=== PATIENT | female | born 1970 | race African-American/Black ===

== ENCOUNTER 2017-06-03 18:13 | Inpatient (IN) | payer OTHER ==
[~2017-06-03] VITALS: Ht 172.7 cm; Wt 167.4 kg
[2017-06-03 21:21] LABS: BASOPHIL % 0.3 % (0-2); PLATELET COUNT 164 x10^3mcL (130-400)
[2017-06-03 21:23] LABS: RED CELL DISTRIBUTION WIDTH 22.5 % (11.5-14.5)
[2017-06-03 21:42] LABS: CALCIUM 9.8 mg/dL (8.5-10.1); CARBON DIOXIDE 33.2 mmol/L (21-32); CHLORIDE SERUM 101 mmol/L (98-107); GFR1 > 60 mL/min; GLUCOSE SERUM 105 mg/dL (74-106); POTASSIUM SERUM 3.9 mmol/L (3.5-5.1); SODIUM SERUM 139 mmol/L (136-145)
[2017-06-03 21:47] LABS: ALKALINE PHOSPHATASE 84 U/L (46-116); ALT/SGPT 14 U/L (14-59); AST/SGOT 14 U/L (15-37); BILIRUBIN TOTAL 0.2 mg/dL (0.20-1.00); TOTAL PROTEIN, SERUM 8.4 g/dL (6.4-8.2)
[2017-06-03 22:03] LABS: AMPHETAMINE QUAL UR NONE DETECTED (NEG <=1000)
[2017-06-04 01:55] LABS: MAGNESIUM 1.9 mg/dL (1.8-2.4); PHOSPHOROUS 3.8 mg/dL (2.5-4.9)
[2017-06-04 01:58] LABS: CHOLESTEROL/HDL RATIO 2.4
[2017-06-04 02:00] LABS: FREE T4 0.84 ng/dL (0.76-1.46); FREE THYROXINE INDEX 1.9 ug/dL (1.4-4.5); T4(THYROXINE) 6.6 ug/dL (4.7-13.3)
[2017-06-04 03:09] LABS: T3 TOTAL 1.25 ng/mL
[2017-06-04 04:25] LABS: microscopic required? NO
[2017-06-04 04:36] LABS: urine erythrocyte NEGATIVE (NEGATIVE)
[2017-06-04 05:12] LABS: BASOPHIL % 0.3 % (0-2); PLATELET COUNT 200 x10^3mcL (130-400)
[2017-06-04 05:13] LABS: RED CELL DISTRIBUTION WIDTH 22.7 % (11.5-14.5)
[2017-06-04 05:23] LABS: CALCIUM 9.6 mg/dL (8.5-10.1); CARBON DIOXIDE 34.4 mmol/L (21-32); CREATININE SERUM 1.1 mg/dL (0.6-1.0); POTASSIUM SERUM 4.1 mmol/L (3.5-5.1)
[2017-06-04 11:01] VITALS: BP 158/85
[2017-06-04 12:30] VITALS: BP 149/89
[2017-06-04 17:05] VITALS: BP 114/64
[2017-06-04] MEDS ORDERED: ZYPREXA15 M1 PO (18:40)
[2017-06-04] MEDS ORDERED: NOR10 PO (18:41)
[2017-06-04] MEDS ORDERED: ZESTRIL20 MG PO (18:41)
[2017-06-04] MEDS ORDERED: DEPAKOTE500 MG PO (18:42)
[2017-06-04 21:27] VITALS: BP 126/68
[2017-06-05 04:52] VITALS: BP 134/74
[2017-06-05 06:26] LABS: CALCIUM 8.7 mg/dL (8.5-10.1); CARBON DIOXIDE 31.5 mmol/L (21-32); CREATININE SERUM 1.1 mg/dL (0.6-1.0); POTASSIUM SERUM 4.1 mmol/L (3.5-5.1)
[2017-06-05 10:02] VITALS: BP 139/76
[2017-06-05 12:15] VITALS: BP 117/68
[2017-06-05 16:38] VITALS: BP 127/70
[2017-06-05 22:02] VITALS: BP 163/87
[2017-06-06 06:17] VITALS: BP 146/65
[2017-06-06 07:00] LABS: CALCIUM 8.7 mg/dL (8.5-10.1); CARBON DIOXIDE 30.8 mmol/L (21-32); CHLORIDE SERUM 103 mmol/L (98-107); GFR1 > 60 mL/min; GLUCOSE SERUM 103 mg/dL (74-106); POTASSIUM SERUM 4.3 mmol/L (3.5-5.1); SODIUM SERUM 137 mmol/L (136-145)
[2017-06-06 08:55] VITALS: BP 138/77
[2017-06-06 13:27] VITALS: BP 110/64
[2017-06-06] MEDS ORDERED: ZYPREXA15 M1 PO (13:29)
[2017-06-06] MEDS ORDERED: DEPAKOTE500 MG PO (13:29)
[2017-06-06 13:51] VITALS: BP 138/77
== END 2017-06-06 15:00 | disposition home or self-care (01) | DRG 52 ==
LOC: ED 18:13 → DU 06-04 00:37
PROVIDERS: Emergency Medicine; Family Medicine; ADMIT Family Medicine Sports Medicine
DX: I67.4 Hypertensive encephalopathy (principal); E44.0 Moderate protein-calorie malnutrition; E11.65 Type 2 diabetes mellitus with hyperglycemia; Z68.43 Body mass index [BMI] 50.0-59.9, adult; I10 Essential (primary) hypertension; E66.01 Morbid (severe) obesity due to excess calories; Z91.19 Patient's noncompliance with other medical treatment and regimen; F25.0 Schizoaffective disorder, bipolar type
CPT/HCPCS: 82962; 84439; G0480; J7030; Q0092